=== PATIENT | female | born 1980 | race Caucasian/White ===

== ENCOUNTER → 2024-12-19 | Outpatient (CLI) | payer BC ==
--- NOTE | 2024-12-19 22:01 | XR ---
EXAMINATION TYPE: XR chest 2V DATE OF EXAM: 12/19/2024 5:26 PM COMPARISON: None CLINICAL INDICATION: Female, 44 years old with history of Z01.818 ENCOUNTER FOR OTHER PREPROCEDURAL E XAMINATION, , TECHNIQUE: Frontal and lateral views FINDINGS: Heart upper limits of normal in size. Aorta and pulmonary vasculature within normal limits. Hazy lowe r lung densities relating to overlying soft tissue. No consolidation or pleural effusion. IMPRESSION: Borderline heart size. No acute process seen. [facility], , 12/19/2024 9:59 PM
== END | disposition home or self-care (01) ==
LOC: RADXRMAIN 17:13
PROVIDERS: ATTEND Orthopaedic Surgery Orthopaedic Surgery of the Spine
DX: Z01.818 Encounter for other preprocedural examination (principal)
CPT/HCPCS: 71046